=== PATIENT | female | born 1965 | race Caucasian/White ===

== ENCOUNTER 2020-10-11 08:49 | Emergency (ER) | payer MEDICAID, OTHER ==
[~2020-10-11] VITALS: Ht 162.6 cm; Wt 90.7 kg
[2020-10-11] MEDS ORDERED: SODIUM CHLORIDE 0.9% 1,000 ML IVB ONE (09:00)
[2020-10-11 09:41] LABS: Alcohol, Urine < 3.0 mg/dL (0-10); Amphetamine Screen, Urine NEGATIVE (NEGATIVE); Barbiturate Scree,Urine NEGATIVE (NEGATIVE); Benzodiazephine Screen, Urine NEGATIVE (NEGATIVE); Cannabinoid Screen, Urine POSITIVE (NEGATIVE); Cocaine Screen, Urine NEGATIVE (NEGATIVE); Opiate Scree,Urine NEGATIVE (NEGATIVE); Phencyclidine Screen, Urine NEGATIVE (NEGATIVE)
[2020-10-11 09:56] LABS: Albumin 3.6 g/dL (3.4-5.0); BUN/Creatinine Ratio 29.3; Calcium 8.3 mg/dL (8.5-10.1); Potassium 3.5 mmol/L (3.5-5.1)
[2020-10-11 09:59] LABS: Bilirubin, Total 0.3 mg/dL (0.2-1.0); Total Protein 7.1 g/dL (6.4-8.2)
[2020-10-11 10:06] VITALS: BP 102/66
[2020-10-11 10:09] LABS: Basophils # (auto) 0 10 ^3/uL (0-0.2); Basophils % (auto) 0.4 % (0.0-2.0); Eosinophils # (auto) 0 10 ^3/uL (0-0.8); Eosinophils % (auto) 0.4 % (0.0-7.0); Hematocrit 37.3 % (36.0-46.0); Hemoglobin 12.8 g/dL (12.2-16.2); Lymphocytes # (auto) 1.6 10 ^3/uL (0.4-5.4); Mean Corpuscular Hemoglobin 32.8 pg (28.0-32.0); Mean Corpuscular Hgb Conc. 34.3 g/dL (32.0-36.0); Mean Corpuscular Volume 95.6 fL (80.0-100.0); Monocytes # (auto) 0.5 10 ^3/uL (0-1.3); Monocytes % (auto) 4.3 % (0.0-12.0); Neutrophils # (auto) 9.4 10 ^3/uL (1.6-8.6); Neutrophils % (auto) 80.9 % (37.0-80.0); Red Cell Distribution Width 13.6 % (11.8-14.3); White Blood Cell 11.6 10^3/uL (4.4-10.8)
[2020-10-11] MEDS ORDERED: cefTRIAXone 1GM/50ML D5W 50 ML IV ONE (11:00)
== END 2020-10-11 11:46 | disposition home or self-care (01) ==
LOC: EDBD 08:49 → ER 08:49
DX: G93.41 Metabolic encephalopathy (principal); F12.10 Cannabis abuse, uncomplicated; J40 Bronchitis, not specified as acute or chronic; F17.210 Nicotine dependence, cigarettes, uncomplicated
CPT/HCPCS: 36415; 70450; 71045; 80053; 80307; 85025; 85049; 93005; 96361; 96365; 99285; J0696; J7030